=== PATIENT | male | born 1965 | race Caucasian/White ===

== ENCOUNTER 2018-03-06 07:41 | Day surgery (SDC) | payer OTHER ==
[2018-03-06] MEDS ORDERED: Ringers Lactate 1,000 ML IV ONE (08:17)
[2018-03-06] MEDS ORDERED: LIDOCAINE 1% MPF 2 ML AMPULE ONE (09:15)
[2018-03-06] MEDS ORDERED: PROPOFOL 200 MG/20 ML VIAL IV ONE (09:15)
--- NOTE | 2018-03-06 09:37 | ENDO RPT ---
[address], [address] COLONOSCOPY PROCEDURE REPORT EXAM DATE: 03/06/2018 PATIENT NAME: Mingo Person MR #: [id number] BIRTHDATE: 1965 ATTENDING: Tan Yarbrough DR STATUS: outpatient MGMT CONSULTANT: Robbin Jaquez and Karolina June RN INDICATIONS: The patient is a 52 yr old Male here for a colonoscopy due to colon cancer screening PROCEDURE PERFORMED: Colonoscopy with biopsy - cold polypectomy MEDICATIONS: Per Anesthesia. ESTIMATED BLOOD LOSS: None CONSENT: The patient understands the risks and benefits of the procedure and understands that these risks include, but are not limited to: sedation, allergic reaction, infection, perforation and/or bleeding. Alternative means of evaluation and treatment include, among others: physical exam, x-rays, and/or surgical intervention. The patient elects to proceed with this endoscopic procedure. DESCRIPTION OF PROCEDURE: During intra-op preparation period all mechanical medical equipment was checked for proper function. Hand hygiene and appropriate measures for infection prevention was taken. Procedure, possible complications, alternatives including, but not limited to possibility of bleeding, perforation, tear, infection, sepsis, need for surgery, need for blood transfusion, were explained to the patient. After the risks, benefits and alternatives of the procedure were thoroughly explained, Informed consent was verified, confirmed and timeout was successfully executed by the treatment team. The patient was placed in the left lateral position. A digital rectal exam was performed and revealed internal hemorrhoids. After appropriate level of anesthesia, the scope was passed. The EC-[id number] ([id number]) endoscope was introduced through the anus and advanced to the cecum, which was identified by both the appendix and ileocecal valve. The quality of the prep was fair. The instrument was then slowly withdrawn as the colon was fully examined. Scope withdrawal time was 10 minutes. COLON FINDINGS: A small smooth and polypoid shaped semi-pedunculated polyp with a friable surface was found in the descending colon. A polypectomy was performed with a cold snare. The resection was complete, the polyp tissue was completely retrieved and sent to histology. Small internal hemorrhoids were found. Melanosis coli was found in the rectum. A biopsy was performed using cold forceps. Retroflexed views revealed no abnormalities. The scope was then completely withdrawn from the patient and the procedure terminated. ADVERSE EVENTS: There were no complications. IMPRESSIONS: 1. Small semi-pedunculated polyp was found in the descending colon; polypectomy was performed with a cold snare 2. Small internal hemorrhoids RECOMMENDATIONS: 1. avoid NSAIDS for 2 weeks 2. await biopsy results 3. fiber rich diet 4. follow-up: office 2 week(s) 5. yearly hemoccult starting in 4 years 6. hemorrhoidal hygiene RECALL: Return in 5 year(s) for Colonoscopy, pending biopsy results. Pending Biopsy Tan Yarbrough DR eSigned: Tan Yarbrough DR 03/06/2018 9:36 AM cc: CPT CODES: ICD9 CODES: PATIENT NAME: Mingo Person MR#: [id number]
== END 2018-03-06 11:40 | disposition home or self-care (01) ==
LOC: OR 07:41
PROVIDERS: ATTEND Surgery
PROC: 0DBL8ZX Excision of Transverse Colon, Via Natural or Artificial Opening Endoscopic, Diagnostic (ICD-10-PCS; 2018-03-06)
PROC: 0DBP8ZX Excision of Rectum, Via Natural or Artificial Opening Endoscopic, Diagnostic (ICD-10-PCS; principal; 2018-03-06 09:15)
DX: Z12.11 Encounter for screening for malignant neoplasm of colon (principal); D12.3 Benign neoplasm of transverse colon; K63.89 Other specified diseases of intestine; K64.8 Other hemorrhoids; E78.2 Mixed hyperlipidemia; Z83.3 Family history of diabetes mellitus
CPT/HCPCS: 88305; J2001; J2704

== ENCOUNTER 2018-11-15 08:03 | Emergency (ER) | payer BC, OTHER ==
[2018-11-15] MEDS ORDERED: NA CHLORIDE 0.9% 1,000 ML ONE (08:37)
[2018-11-15] MEDS ORDERED: ONDANSETRON 4 MG/2 ML VIAL ONE (08:37)
[2018-11-15] MEDS ORDERED: MORPHINE 4 MG/ML SYR ONE (08:37)
[2018-11-15 08:40] LABS: Absolute Lymphocytes (CBC) 0.8 K/uL (0.7-4.9); Basophils % 0.4 % (0-1.3); Hematocrit 47.7 % (39.6-49.0); Lymphocytes % 6.1 % (15.3-44.8); MPV 9.2 fL (7.6-11.3); Monocytes % 4.6 % (3.3-12.3); RBC Red Blood Cell Count 5.45 M/uL (4.33-5.43)
[2018-11-15 08:55] LABS: Albumin 4.3 g/dL (3.4-5.0); Bilirubin Direct 0.1 mg/dL (0-0.2); Bilirubin Total 0.4 mg/dL (0.2-1.0); Potassium 4.1 mmol/L (3.5-5.1); Protein, Total 8.2 g/dL (6.4-8.2)
[2018-11-15] MEDS ORDERED: FENTANYL CITR 100 MCG/2 ML ONE (09:23)
--- NOTE | 2018-11-15 09:33 | RAD REPORT ---
EXAM DESCRIPTION: CTAbdomen Pelvis W Contrast - 11/15/2018 9:20 am CLINICAL HISTORY: Abdominal pain. ABD PAIN COMPARISON: No comparisons TECHNIQUE: Biphasic CT imaging of the abdomen and pelvis was performed with 100 ml non-ionic IV cont rast. All CT scans are performed using dose optimization technique as appropriate and may include automated exposure control or mA/KV adjustment according to patient size. FINDINGS: The lung bases are clear. The liver, spleen, pancreas, adrenal glands and kidneys are within normal limits. Gallbladder distens ion noted. No bowel obstruction, free air, free fluid or abscess. The appendix is normal. No evidence of signi ficant lymphadenopathy. No suspicious bony findings. IMPRESSION: No acute intra-abdominal or pelvic finding.
[2018-11-15 09:36] LABS: Urine White Blood Cell Casts OK
[2018-11-15 09:37] LABS: Blood Morphology Comment NOT SEEN (NOT SEEN); Platelet Estimate ADEQ
--- NOTE | 2018-11-15 10:25 | EDPHYS ---
Physician Documentation [facility] Name: Mingo Person Age: 52 yrs Sex: Male : 1965 Arrival Date: 11/15/2018 Time: 08:05 Bed 18 Private MD: ED Physician Toni Weller HPI: 11/15 10:15 This 52 yrs old Male presents to ER via Ambulatory with complaints of nh Abdominal Pain. 10:15 The patient presents with abdominal pain in the right upper quadrant. Onset: The nh symptoms/episode began/occurred acutely, this morning. The symptoms do not radiate. Associated signs and symptoms: Pertinent positives: nausea. The symptoms are described as sharp. Modifying factors: The symptoms are alleviated by nothing, the symptoms are aggravated by nothing. Severity of pain: At its worst the pain was moderate this morning. The patient has not experienced similar symptoms in the past. The patient has not recently seen a physician. Historical: - Allergies: 08:14 No Known Allergies; em - PMHx: 08:14 None; em - PSHx: 08:14 skin graft R foot; em - Immunization history:: Adult Immunizations up to date. - Social history:: Smoking status: Patient/guardian denies using tobacco. - Ebola Screening: : Patient negative for fever greater than or equal to 101.5 degrees Fahrenheit, and additional compatible Ebola Virus Disease symptoms Patient denies exposure to infectious person Patient denies travel to an Ebola-affected area in the 21 days before illness onset No symptoms or risks identified at this time. ROS: 10:15 Constitutional: Negative for fever, chills, and weight loss, Eyes: Negative for injury, nh pain, redness, and discharge, ENT: Negative for injury, pain, and discharge, Neck: Negative for injury, pain, and swelling, Cardiovascular: Negative for chest pain, palpitations, and edema, Respiratory: Negative for shortness of breath, cough, wheezing, and pleuritic chest pain, Back: Negative for injury and pain, : Negative for injury, bleeding, discharge, and swelling, MS/Extremity: Negative for injury and deformity, Skin: Negative for injury, rash, and discoloration, Neuro: Negative for headache, weakness, numbness, tingling, and seizure, Psych: Negative for depression, anxiety, suicide ideation, homicidal ideation, and hallucinations, Allergy/Immunology: Negative for hives, rash, and allergies, Endocrine: Negative for neck swelling, polydipsia, polyuria, polyphagia, and marked weight changes, Hematologic/Lymphatic: Negative for swollen nodes, abnormal bleeding, and unusual bruising. 10:15 Abdomen/GI: Positive for abdominal pain, nausea. Exam: 10:15 Constitutional: This is a well developed, well nourished patient who is awake, alert, nh and in no acute distress. Head/Face: Normocephalic, atraumatic. Eyes: Pupils equal round and reactive to light, extra-ocular motions intact. Lids and lashes normal. Conjunctiva and sclera are non-icteric and not injected. Cornea within normal limits. Periorbital areas with no swelling, redness, or edema. ENT: Nares patent. No nasal discharge, no septal abnormalities noted. Tympanic membranes are normal and external auditory canals are clear. Oropharynx with no redness, swelling, or masses, exudates, or evidence of obstruction, uvula midline. Mucous membranes moist. Neck: Trachea midline, no thyromegaly or masses palpated, and no cervical lymphadenopathy. Supple, full range of motion without nuchal rigidity, or vertebral point tenderness. No Meningismus. Chest/axilla: Normal chest wall appearance and motion. Nontender with no deformity. No lesions are appreciated. Cardiovascular: Regular rate and rhythm with a normal S1 and S2. No gallops, murmurs, or rubs. Normal PMI, no JVD. No pulse deficits. Respiratory: Lungs have equal breath sounds bilaterally, clear to auscultation and percussion. No rales, rhonchi or wheezes noted. No increased work of breathing, no retractions or nasal flaring. Back: No spinal tenderness. No costovertebral tenderness. Full range of motion. Skin: Warm, dry with normal turgor. Normal color with no rashes, no lesions, and no evidence of cellulitis. MS/ Extremity: Pulses equal, no cyanosis. Neurovascular intact. Full, normal range of motion. Neuro: Awake and alert, GCS 15, oriented to person, place, time, and situation. Cranial nerves II-XII grossly intact. Motor strength 5/5 in all extremities. Sensory grossly intact. Cerebellar exam normal. Normal gait. Psych: Awake, alert, with orientation to person, place and time. Behavior, mood, and affect are within normal limits. 10:15 Abdomen/GI: Inspection: abdomen appears normal, Bowel sounds: normal, Palpation: moderate abdominal tenderness, in the right upper quadrant. Vital Signs: 08:14 BP 174 / 107; Pulse 65; Resp 20; Temp 98.1; Pulse Ox 97% on R/A; Weight 104.33 kg; em Height 5 ft. 6 in. (167.64 cm); Pain 10/10; 08:43 BP 148 / 73; Pulse 57; Resp 18; Pulse Ox 95% on R/A; Pain 9/10; em 09:38 BP 151 / 71; Pulse 59; Resp 18; Pulse Ox 100% on R/A; Pain 6/10; em 10:35 BP 160 / 81; Pulse 57; Resp 18; Pulse Ox 98% on R/A; Pain 8/10; em 08:14 Body Mass Index 37.12 (104.33 kg, 167.64 cm) em MDM: 08:09 Patient medically screened. wy 10:15 Data reviewed: vital signs, nurses notes, lab test result(s), radiologic studies, I nh have discussed the patient's presentation/case with the attending Emergency Department Physician; and as a result, I will discharge patient. Counseling: I had a detailed discussion with the patient and/or guardian regarding: the historical points, exam findings, and any diagnostic results supporting the discharge/admit diagnosis, lab results, radiology results, the need for outpatient follow up, to return to the emergency department if symptoms worsen or persist or if there are any questions or concerns that arise at home. 11/15 08:20 Order name: Basic Metabolic Panel; Complete Time: 09:20 wy 11/15 08:20 Order name: CBC with Diff; Complete Time: 10:04 wy 11/15 08:20 Order name: Creatinine for Radiology; Complete Time: : wy 11/15 08:20 Order name: Hepatic Function; Complete Time: 09:20 wy 11/15 08:20 Order name: Lipase; Complete Time: 09:20 wy 11/15 09:36 Order name: CBC Smear Scan; Complete Time: 10:04 EDMS 11/15 08:20 Order name: IV Saline Lock; Complete Time: 08:34 wy 11/15 08:20 Order name: CT Abd/Pelvis - IV Contrast Only; Complete Time: 10:04 wy 11/15 08:20 Order name: Labs collected and sent; Complete Time: 08:35 nh Administered Medications: 08:30 Drug: NS 0.9% 1000 ml Route: IV; Rate: 1 bolus; Site: left antecubital; em 10:35 Follow up: IV Status: Completed infusion; IV Intake: 1000ml em 08:34 Drug: morphine 4 mg Route: IVP; Site: left antecubital; sg 09:10 Follow up: Response: No adverse reaction; Pain is unchanged, physician notified em 08:34 Drug: Zofran 4 mg Route: IVP; Site: left antecubital; sg 09:10 Follow up: Response: No adverse reaction em 09:11 Drug: fentaNYL (PF) 50 mcg Route: IVP; Site: left antecubital; hb 09:37 Follow up: Response: No adverse reaction; Pain is decreased em 10:35 Drug: fentaNYL (PF) 50 mcg Route: IVP; Site: left antecubital; em 11:00 Follow up: Response: No adverse reaction; Pain is decreased em Disposition: 11/15/18 10:23 Discharged to Home. Impression: Unspecified abdominal pain. - Condition is Stable. - Discharge Instructions: Abdominal Pain, Adult. - Prescriptions for Bentyl 20 mg Oral Tablet - take 2 tablet by ORAL route every 6 hours As needed; 40 tablet. Zofran 4 mg Oral Tablet - take 1 tablet by ORAL route every 12 hours As needed; 20 tablet. - Medication Reconciliation Form, Thank You Letter, Antibiotic Education, Prescription Opioid Use form. - Follow up: Richard Rivera MD; When: 2 - 3 days; Reason: Recheck today's complaints. - Problem is new. - Symptoms are unchanged. Signatures: Dispatcher [employer] EDMN Jerome Aguiar, RN RN sg Cathy Schaefer, HARP MAKER HARP MAKER wy Eben Mascorro, FRENCH COMBER FRENCH COMBER em Patricia Thornton, RN RN Corrections: (The following items were deleted from the chart) 09:44 08:22 Abdomen Limited+US.RAD.BRZ ordered. EDMN EDMS 11:03 10:23 11/15/2018 10:23 Discharged to Home. Impression: Unspecified abdominal pain. em Condition is Stable. Forms are Medication Reconciliation Form, Thank You Letter, Antibiotic Education, Prescription Opioid Use. Follow up: Richard Rivera; When: 2 - 3 days; Reason: Recheck today's complaints. Problem is new. Symptoms are unchanged. nh
--- NOTE | 2018-11-15 10:25 | ER ---
Nurse's Notes [facility] Name: Mingo Person Age: 52 yrs Sex: Male : 1965 Arrival Date: 11/15/2018 Time: 08:05 Bed 18 Private MD: Diagnosis: Unspecified abdominal pain Presentation: 11/15 08:12 Presenting complaint: Patient states: abdominal pain since last night around 10 pm, em reports nausea, denies V/D or fever, hx of gallstones. Transition of care: patient was not received from another setting of care. Onset of symptoms was November 14, 2018. Risk Assessment: Do you want to hurt yourself or someone else? Patient reports no desire to harm self or others. Initial Sepsis Screen: Does the patient meet any 2 criteria? No. Patient's initial sepsis screen is negative. Does the patient have a suspected source of infection? No. Patient's initial sepsis screen is negative. Care prior to arrival: None. 08:12 Method Of Arrival: Ambulatory em 08:17 Acuity: HEBER 3 hb Historical: - Allergies: 08:14 No Known Allergies; em - PMHx: 08:14 None; em - PSHx: 08:14 skin graft R foot; em - Immunization history:: Adult Immunizations up to date. - Social history:: Smoking status: Patient/guardian denies using tobacco. - Ebola Screening: : Patient negative for fever greater than or equal to 101.5 degrees Fahrenheit, and additional compatible Ebola Virus Disease symptoms Patient denies exposure to infectious person Patient denies travel to an Ebola-affected area in the 21 days before illness onset No symptoms or risks identified at this time. Screenin:15 Abuse screen: Denies threats or abuse. Nutritional screening: No deficits noted. em Tuberculosis screening: No symptoms or risk factors identified. Fall Risk None identified. Assessment: 08:14 General: Appears in no apparent distress. uncomfortable, Behavior is cooperative, em restless, Denies fever. Pain: Complains of pain in right upper quadrant and left upper quadrant Pain radiates to back Pain currently is 10 out of 10 on a pain scale. Pain began 1 day ago. Neuro: Level of Consciousness is awake, alert, obeys commands, Oriented to person, place, time, situation. Cardiovascular: Denies chest pain, shortness of breath, Capillary refill < 3 seconds Patient's skin is warm and dry. Respiratory: Airway is patent Respiratory effort is even, unlabored, Respiratory pattern is regular, symmetrical. GI: Abdomen is round non-distended, Bowel sounds present X 4 quads. Abd is soft X 4 quads Abdomen is tender to palpation in right upper quadrant Reports nausea, Patient currently denies diarrhea, vomiting. Derm: Skin is intact, is healthy with good turgor, Skin is pink, warm \T\ dry. Musculoskeletal: Capillary refill < 3 seconds, Range of motion: intact in all extremities. 08:20 Reassessment: I agree with the assessment made with Eben TUCKER. sg 09:10 Reassessment: reports pain is still 8/10, rocking back and forth in stretcher, provider em notified, new medication orders received. 09:38 Reassessment: Patient appears in no apparent distress at this time. Patient and/or em family updated on plan of care and expected duration. Pain level reassessed. Patient is alert, oriented x 3, equal unlabored respirations, skin warm/dry/pink. Patient states feeling better. Patient states symptoms have improved. 10:30 Reassessment: Patient appears in no apparent distress at this time. Patient and/or em family updated on plan of care and expected duration. Pain level reassessed. request pain medication prior to discharge, provider notified, new medication orders received. Vital Signs: 08:14 BP 174 / 107; Pulse 65; Resp 20; Temp 98.1; Pulse Ox 97% on R/A; Weight 104.33 kg; em Height 5 ft. 6 in. (167.64 cm); Pain 10/10; 08:43 BP 148 / 73; Pulse 57; Resp 18; Pulse Ox 95% on R/A; Pain 9/10; em 09:38 BP 151 / 71; Pulse 59; Resp 18; Pulse Ox 100% on R/A; Pain 6/10; em 10:35 BP 160 / 81; Pulse 57; Resp 18; Pulse Ox 98% on R/A; Pain 8/10; em 08:14 Body Mass Index 37.12 (104.33 kg, 167.64 cm) em ED Course: 08:05 Patient arrived in ED. mr 08:07 Eben Mascorro LVN is Primary Nurse. em 08:09 Cathy Schaefer FNP is [facility]. nh 08:09 Toni Weller MD is Attending Physician. nh 08:14 Arm band placed on. em 08:15 Patient has correct armband on for positive identification. Placed in gown. Bed in low em position. Call light in reach. Adult w/ patient. Pulse ox on. NIBP on. 08:17 Triage completed. hb 08:30 Radiology exam delayed due to lab results not completed at this time. (BUN/Creatinine). mw3 08:30 Initial lab(s) drawn, by me, sent to lab. Inserted saline lock: 20 gauge in left em antecubital area, using aseptic technique. Blood collected. 09:19 CT completed. Patient tolerated procedure well. Patient moved back from CT. mw3 09:20 CT Abd/Pelvis - IV Contrast Only In Process Unspecified. EDMS 10:23 Richard Rivera MD is Referral Physician. nh 11:02 No provider procedures requiring assistance completed. IV discontinued, intact, em bleeding controlled, No redness/swelling at site. Pressure dressing applied. Administered Medications: 08:30 Drug: NS 0.9% 1000 ml Route: IV; Rate: 1 bolus; Site: left antecubital; em 10:35 Follow up: IV Status: Completed infusion; IV Intake: 1000ml em 08:34 Drug: morphine 4 mg Route: IVP; Site: left antecubital; sg 09:10 Follow up: Response: No adverse reaction; Pain is unchanged, physician notified em 08:34 Drug: Zofran 4 mg Route: IVP; Site: left antecubital; sg 09:10 Follow up: Response: No adverse reaction em 09:11 Drug: fentaNYL (PF) 50 mcg Route: IVP; Site: left antecubital; hb 09:37 Follow up: Response: No adverse reaction; Pain is decreased em 10:35 Drug: fentaNYL (PF) 50 mcg Route: IVP; Site: left antecubital; em 11:00 Follow up: Response: No adverse reaction; Pain is decreased em Intake: 10:35 IV: 1000ml; Total: 1000ml. em Outcome: 10:23 Discharge ordered by . nh 11:02 Discharged to home ambulatory, with family. em 11:02 Condition: good 11:02 Discharge instructions given to patient, family, Instructed on discharge instructions, follow up and referral plans. medication usage, Demonstrated understanding of instructions, follow-up care, medications, Prescriptions given X 2. 11:03 Patient left the ED. em Signatures: Dispatcher [employer] Jerome Padilla, ZULEYKA RN sg Cathy Schaefer, MARINE WELDER MARINE WELDER Bindu Moser mr Ludwin, Eben, PATTERN FINISHER PATTERN FINISHER em Patricia Thornton RN RN Denisse Nunez mw3 Corrections: (The following items were deleted from the chart) 11:02 09:38 BP 151 / 71; Pulse 59bpm; Resp 18bpm; Pulse Ox 100% RA; em em
== END 2018-11-15 11:03 | disposition home or self-care (01) ==
LOC: ER 08:03
DX: R10.11 Right upper quadrant pain (principal)
CPT/HCPCS: 36415; 74177; 80048; 80076; 83690; 85025; 96361; 96374; 96375; 99284; J2405; J3010; J7030; Q9967

== ENCOUNTER 2018-11-15 14:01 | Inpatient (IN) | payer BC ==
[2018-11-15] MEDS ORDERED: NA CHLORIDE 0.9% 1,000 ML ONE (14:53)
[2018-11-15] MEDS ORDERED: MORPHINE 4 MG/ML SYR ONE ×2 (14:54→15:35)
[2018-11-15] MEDS ORDERED: ONDANSETRON 4 MG/2 ML VIAL ONE (14:54)
[2018-11-15] MEDS ORDERED: FENTANYL CITR 100 MCG/2 ML ONE (15:48)
--- NOTE | 2018-11-15 16:02 | ER ---
Nurse's Notes [facility] Name: Mingo Person Age: 52 yrs Sex: Male : 1965 Arrival Date: 11/15/2018 Time: 14:02 Bed 24 Private MD: Diagnosis: Other abdominal pain Presentation: 11/15 14:29 Presenting complaint: Patient states: "I was here earlier today for the same complain ca1 of abdominal pain, N/V. I was sent home with prescriptions at around 1130am. I am still in pain now and it is a 10. Transition of care: patient was not received from another setting of care. Onset of symptoms was November 15, 2018. Risk Assessment: Do you want to hurt yourself or someone else? Patient reports no desire to harm self or others. Initial Sepsis Screen: Does the patient meet any 2 criteria? No. Patient's initial sepsis screen is negative. Does the patient have a suspected source of infection? No. Patient's initial sepsis screen is negative. Care prior to arrival: None. 14:29 Method Of Arrival: Ambulatory ca1 14:29 Acuity: HEBER 3 ca1 Triage Assessment: 14:34 General: Appears in no apparent distress. uncomfortable, Behavior is calm, cooperative, ca1 appropriate for age. Pain: Complains of pain in right upper quadrant Pain does not radiate. Pain currently is 10 out of 10 on a pain scale. GI: Abdomen is flat, non-distended, Bowel sounds present X 4 quads. Abd is soft X 4 quads Abdomen is tender to palpation in right upper quadrant Reports nausea, vomiting. Historical: - Allergies: 14:34 No Known Allergies; ca1 - Home Meds: 14:34 atorvastatin 10 mg oral tab 1 tab once daily [Active]; ca1 - PMHx: 14:34 High Cholesterol; ca1 - Immunization history:: Adult Immunizations up to date. - Social history:: Smoking status: Patient/guardian denies using tobacco. - Ebola Screening: : Patient negative for fever greater than or equal to 101.5 degrees Fahrenheit, and additional compatible Ebola Virus Disease symptoms Patient denies exposure to infectious person Patient denies travel to an Ebola-affected area in the 21 days before illness onset No symptoms or risks identified at this time. Screenin:45 Abuse screen: Denies threats or abuse. Denies injuries from another. Nutritional ca1 screening: No deficits noted. Tuberculosis screening: No symptoms or risk factors identified. Fall Risk IV access (20 points). Assessment: 14:45 General: Appears in no apparent distress. uncomfortable, Behavior is calm, cooperative, ca1 appropriate for age. Pain: Complains of pain in abdomen and right upper quadrant Pain does not radiate. Pain currently is 10 out of 10 on a pain scale. Neuro: Level of Consciousness is awake, alert, obeys commands, Oriented to person, place, time, situation. Cardiovascular: Heart tones S1 S2 present Capillary refill < 3 seconds Patient's skin is warm and dry. Respiratory: Airway is patent Respiratory effort is even, unlabored, Respiratory pattern is regular, symmetrical, Breath sounds are clear bilaterally. GI: Abdomen is round non-distended, Bowel sounds present X 4 quads. Abd is soft X 4 quads Abdomen is tender to palpation in right upper quadrant Reports nausea, vomiting. : No deficits noted. No signs and/or symptoms were reported regarding the genitourinary system. EENT: No deficits noted. No signs and/or symptoms were reported regarding the EENT system. Derm: Skin is intact, is healthy with good turgor, Skin is pink, warm \\T\\ dry. Musculoskeletal: Circulation, motion, and sensation intact. Capillary refill < 3 seconds, Range of motion: intact in all extremities. 15:06 Reassessment: Patient appears in no apparent distress at this time. Pt's eyes closed. ca1 Resting with equal and unlabored breathing. Skin pink, warm and dry. Significant other at bedside. 15:20 Reassessment: Pt woke up and c/o abdl pain 10/10. Notified provider. ca1 15:38 Reassessment: Patient appears in no apparent distress at this time. Patient and/or ca1 family updated on plan of care and expected duration. Pain level reassessed. Patient is alert, oriented x 3, equal unlabored respirations, skin warm/dry/pink. Pt still c/o abdl pain. Notified provider. Orders given. 15:59 Reassessment: Dr. Silva at bedside. Assessed pt. ca1 16:26 Reassessment: Patient appears in no apparent distress at this time. Pt's eyes closed, ca1 with equal and unlabored breathing. Skin pink, warm and dry. Kept undisturbed. Vital Signs: 14:34 BP 183 / 98; Pulse 71; Resp 16 S; Temp 98.3(O); Pulse Ox 99% on R/A; Weight 106.59 kg ca1 (R); Height 5 ft. 6 in. (167.64 cm) (R); Pain 10/10; 15:06 BP 172 / 97; Pulse 67; Resp 15 S; Pulse Ox 94% on R/A; ca1 15:35 BP 137 / 80; Pulse 56; Resp 17 S; Temp 99.1(O); Pulse Ox 95% on R/A; Pain 10/10; ca1 16:30 BP 166 / 74; Pulse 82; Resp 16 S; Pulse Ox 96% on R/A; ca1 14:34 Body Mass Index 37.93 (106.59 kg, 167.64 cm) ca1 ED Course: 14:02 Patient arrived in ED. mr 14:23 Barby Perla, RN is Primary Nurse. ca1 14:27 [facility] nh 14:27 Toni Weller MD is Attending Physician. nh 14:32 Triage completed. ca1 14:34 Arm band placed on right wrist. ca1 14:40 Inserted saline lock: 20 gauge in right antecubital area, using aseptic technique. jp3 Patient maintains SpO2 saturation greater than 95% on room air. 14:43 Call light in reach. Side rails up X 1. Verbal reassurance given. Warm blanket given. jp3 Pulse ox on. NIBP on. 14:45 No provider procedures requiring assistance completed. ca1 16:00 EKG done, by ED staff, reviewed by Cathy BELL. jp3 16:02 Scooter Han MD is Hospitalizing Provider. nh 16:18 X-ray completed. Portable x-ray completed in exam room. Patient tolerated procedure jb2 well. 16:19 Chest Single View XRAY In Process Unspecified. EDMS 16:53 Patient admitted, IV remains in place. ca1 Administered Medications: 14:40 Drug: Zofran 4 mg Route: IVP; Site: right antecubital; ca1 15:20 Follow up: Response: No adverse reaction; Pain is decreased ca1 15:20 Follow up: Response: Nausea is decreased ca1 14:43 Drug: morphine 4 mg Route: IVP; Site: right antecubital; ca1 15:20 Follow up: Response: No adverse reaction; Pain is unchanged, physician notified ca1 14:43 Drug: NS 0.9% 1000 ml Route: IV; Rate: 1 bolus; Site: right antecubital; ca1 16:53 Follow up: Response: No adverse reaction; IV Status: Completed infusion ca1 15:21 Drug: morphine 4 mg Route: IVP; Site: right antecubital; ca1 15:37 Follow up: Response: No adverse reaction; Pain is unchanged, physician notified ca1 15:39 Drug: fentaNYL (PF) 50 mcg Route: IVP; Site: right antecubital; ca1 16:00 Follow up: Response: No adverse reaction; Pain is unchanged, physician notified ca1 16:01 Drug: fentaNYL (PF) 50 mcg Route: IVP; Site: right antecubital; ca1 16:29 Follow up: Response: No adverse reaction; Pain is decreased ca1 Outcome: 16:02 Decision to Hospitalize by Provider. al 16:59 Admitted to Med/surg accompanied by tech, family with patient, via stretcher, room 212, ca1 with chart, Report called to BOBBI Oconnell RN 16:59 Condition: stable 16:59 Instructed on the need for admit. 17:12 Patient left the ED. ca1 Signatures: Dispatcher [employer] EDMS Cathy Schaefer, ELECTRONICS DEPARTMENT MANAGER ELECTRONICS DEPARTMENT MANAGER al Bindu Magdaleno, Abrahan wadsworth2 Savage Goodman jp3 Barby Perla RN RN ca1 Corrections: (The following items were deleted from the chart) 16:32 16:26 BP 172 / 73; Pulse 82bpm; Resp 16bpm; Spontaneous; Pulse Ox 96% RA; ca1 ca1
--- NOTE | 2018-11-15 16:03 | EDPHYS ---
Physician Documentation [facility] Name: Mingo Person Age: 52 yrs Sex: Male : 1965 Arrival Date: 11/15/2018 Time: 14:02 Bed 24 Private MD: ED Physician Toni Weller HPI: 11/15 15:59 This 52 yrs old Male presents to ER via Ambulatory with complaints of nh Abdominal Pain. 15:59 The patient presents with abdominal pain in the right upper quadrant. Onset: The nh symptoms/episode began/occurred this morning. The symptoms do not radiate. Associated signs and symptoms: none. The symptoms are described as sharp. Modifying factors: The symptoms are alleviated by nothing, the symptoms are aggravated by nothing. Severity of pain: At its worst the pain was severe just prior to arrival, in the emergency department the pain is unchanged. The patient has not experienced similar symptoms in the past. The patient has been recently seen at the [facility] Department, today, by me, for similar complaints labs were performed, CT scan was performed, was given a prescription for pain medications, was given a prescription for an antiemetic. Historical: - Allergies: 14:34 No Known Allergies; ca1 - Home Meds: 14:34 atorvastatin 10 mg oral tab 1 tab once daily [Active]; ca1 - PMHx: 14:34 High Cholesterol; ca1 - Immunization history:: Adult Immunizations up to date. - Social history:: Smoking status: Patient/guardian denies using tobacco. - Ebola Screening: : Patient negative for fever greater than or equal to 101.5 degrees Fahrenheit, and additional compatible Ebola Virus Disease symptoms Patient denies exposure to infectious person Patient denies travel to an Ebola-affected area in the 21 days before illness onset No symptoms or risks identified at this time. ROS: 15:59 Constitutional: Negative for fever, chills, and weight loss, Eyes: Negative for injury, nh pain, redness, and discharge, ENT: Negative for injury, pain, and discharge, Neck: Negative for injury, pain, and swelling, Cardiovascular: Negative for chest pain, palpitations, and edema, Respiratory: Negative for shortness of breath, cough, wheezing, and pleuritic chest pain, Back: Negative for injury and pain, : Negative for injury, bleeding, discharge, and swelling, MS/Extremity: Negative for injury and deformity, Skin: Negative for injury, rash, and discoloration, Neuro: Negative for headache, weakness, numbness, tingling, and seizure, Psych: Negative for depression, anxiety, suicide ideation, homicidal ideation, and hallucinations, Allergy/Immunology: Negative for hives, rash, and allergies, Endocrine: Negative for neck swelling, polydipsia, polyuria, polyphagia, and marked weight changes, Hematologic/Lymphatic: Negative for swollen nodes, abnormal bleeding, and unusual bruising. 15:59 Abdomen/GI: Positive for abdominal pain, nausea, Negative for vomiting, diarrhea. Exam: 15:59 Constitutional: This is a well developed, well nourished patient who is awake, alert, nh and in no acute distress. Head/Face: Normocephalic, atraumatic. Eyes: Pupils equal round and reactive to light, extra-ocular motions intact. Lids and lashes normal. Conjunctiva and sclera are non-icteric and not injected. Cornea within normal limits. Periorbital areas with no swelling, redness, or edema. ENT: Nares patent. No nasal discharge, no septal abnormalities noted. Tympanic membranes are normal and external auditory canals are clear. Oropharynx with no redness, swelling, or masses, exudates, or evidence of obstruction, uvula midline. Mucous membranes moist. Neck: Trachea midline, no thyromegaly or masses palpated, and no cervical lymphadenopathy. Supple, full range of motion without nuchal rigidity, or vertebral point tenderness. No Meningismus. Chest/axilla: Normal chest wall appearance and motion. Nontender with no deformity. No lesions are appreciated. Cardiovascular: Regular rate and rhythm with a normal S1 and S2. No gallops, murmurs, or rubs. Normal PMI, no JVD. No pulse deficits. Respiratory: Lungs have equal breath sounds bilaterally, clear to auscultation and percussion. No rales, rhonchi or wheezes noted. No increased work of breathing, no retractions or nasal flaring. Abdomen/GI: Soft, non-tender, with normal bowel sounds. No distension or tympany. No guarding or rebound. No evidence of tenderness throughout. Back: No spinal tenderness. No costovertebral tenderness. Full range of motion. Skin: Warm, dry with normal turgor. Normal color with no rashes, no lesions, and no evidence of cellulitis. MS/ Extremity: Pulses equal, no cyanosis. Neurovascular intact. Full, normal range of motion. Neuro: Awake and alert, GCS 15, oriented to person, place, time, and situation. Cranial nerves II-XII grossly intact. Motor strength 5/5 in all extremities. Sensory grossly intact. Cerebellar exam normal. Normal gait. Psych: Awake, alert, with orientation to person, place and time. Behavior, mood, and affect are within normal limits. Vital Signs: 14:34 BP 183 / 98; Pulse 71; Resp 16 S; Temp 98.3(O); Pulse Ox 99% on R/A; Weight 106.59 kg ca1 (R); Height 5 ft. 6 in. (167.64 cm) (R); Pain 10/10; 15:06 BP 172 / 97; Pulse 67; Resp 15 S; Pulse Ox 94% on R/A; ca1 15:35 BP 137 / 80; Pulse 56; Resp 17 S; Temp 99.1(O); Pulse Ox 95% on R/A; Pain 10/10; ca1 16:30 BP 166 / 74; Pulse 82; Resp 16 S; Pulse Ox 96% on R/A; ca1 14:34 Body Mass Index 37.93 (106.59 kg, 167.64 cm) ca1 MDM: 14:27 Patient medically screened. tx 15:59 Data reviewed: vital signs, nurses notes, lab test result(s), radiologic studies, I nh have discussed the patient's presentation/case with the attending Emergency Department Physician; and as a result, I will admit patient. Counseling: I had a detailed discussion with the patient and/or guardian regarding: the historical points, exam findings, and any diagnostic results supporting the discharge/admit diagnosis, lab results, radiology results, the need for further work-up and treatment in the hospital. Physician consultation: Scooter Han MD was called at 16:01, was contacted at 16:01, regarding patient's condition, and will see patient in ED, would like medications started, mefoxin. 11/15 15:06 Order name: Abdomen Exam Complete [facility] 11/15 15:08 Order name: Abdomen Exam Complete [facility] 11/15 15:56 Order name: Chest Single View XRAY tx 11/15 15:50 Order name: CONS Physician Consult [facility] 11/15 15:56 Order name: EKG - Nurse/Tech; Complete Time: 16:00 tx 11/15 16:01 Order name: EKG; Complete Time: 16:02 ca1 Administered Medications: 14:40 Drug: Zofran 4 mg Route: IVP; Site: right antecubital; ca1 15:20 Follow up: Response: No adverse reaction; Pain is decreased ca1 15:20 Follow up: Response: Nausea is decreased ca1 14:43 Drug: morphine 4 mg Route: IVP; Site: right antecubital; ca1 15:20 Follow up: Response: No adverse reaction; Pain is unchanged, physician notified ca1 14:43 Drug: NS 0.9% 1000 ml Route: IV; Rate: 1 bolus; Site: right antecubital; ca1 16:53 Follow up: Response: No adverse reaction; IV Status: Completed infusion ca1 15:21 Drug: morphine 4 mg Route: IVP; Site: right antecubital; ca1 15:37 Follow up: Response: No adverse reaction; Pain is unchanged, physician notified ca1 15:39 Drug: fentaNYL (PF) 50 mcg Route: IVP; Site: right antecubital; ca1 16:00 Follow up: Response: No adverse reaction; Pain is unchanged, physician notified ca1 16:01 Drug: fentaNYL (PF) 50 mcg Route: IVP; Site: right antecubital; ca1 16:29 Follow up: Response: No adverse reaction; Pain is decreased ca1 Disposition: 11/15/18 16:02 Hospitalization ordered by Scooter Han for Observation. Preliminary diagnosis is Other abdominal pain. - Bed requested for Telemetry/MedSurg (observation). - Status is Observation. ca1 - Condition is Stable. - Problem is new. - Symptoms are unchanged. UTI on Admission? No Signatures: Dispatcher [employer] [facility] Suly Smith RN RN dw Cathy Schaefer, FRONT LINE LEADER FRONT LINE LEADER tx Barby Perla RN RN ca1 Corrections: (The following items were deleted from the chart) 16:49 16:02 Hospitalization Ordered by Scooter Han MD for Observation. Preliminary dw diagnosis is Other abdominal pain. Bed requested for Telemetry/MedSurg (observation). Status is Observation. Condition is Stable. Problem is new. Symptoms are unchanged. UTI on Admission? No. nh 17:12 16:49 11/15/2018 16:02 Hospitalization Ordered by Scooter Han MD for Observation. ca1 Preliminary diagnosis is Other abdominal pain. Bed requested for Telemetry/MedSurg (observation). Status is Observation. Condition is Stable. Problem is new. Symptoms are unchanged. UTI on Admission? No. dw
--- NOTE | 2018-11-15 16:48 | RAD REPORT ---
EXAM DESCRIPTION: RAD - Chest Single View - 11/15/2018 4:19 pm CLINICAL HISTORY: abdominal pain Chest pain. COMPARISON: Abdomen Pelvis W Contrast dated 11/15/2018 FINDINGS: Portable technique limits examination quality. Underinflated lungs with vascular crowding noted. The heart is mildly enlarged in size. No displaced fractures. IMPRESSION: Underinflated lungs.
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
[2018-11-15] MEDS ORDERED: ONDANSETRON 4 MG/2 ML VIAL IV PRN (17:17)
[2018-11-15] MEDS ORDERED: HYDROMORPHONE HCL 1 MG/ML INJ IV PRN (17:17)
[2018-11-15] MEDS ORDERED: CEFOXITIN SODIUM 1 GM/VIAL IVPB SCH (17:17)
[2018-11-15] MEDS: NA CHLORIDE 0.9% 1,000 ML IV SCH (17:50)
[2018-11-15] MEDS: CEFOXITIN/SWI 1gm 1 GM/10 ML SYR IV SCH (17:51)
[2018-11-15] MEDS: ACETAMINOPHEN 500 MG TAB PO PRN (22:22)
[2018-11-16] MEDS: NA CHLORIDE 0.9% 1,000 ML IV SCH ×4 (00:22→16:28)
[2018-11-16] MEDS: CEFOXITIN/SWI 1gm 1 GM/10 ML SYR IV SCH ×3 (00:22→16:29)
[2018-11-16 01:23] LABS: Urine Appearance CLEAR; Urine Bilirubin NEGATIVE (NEG); Urine Blood NEGATIVE (NEG); Urine Color YELLOW; Urine Glucose TRACE (NEG); Urine Protein NEGATIVE (NEG); Urine Urobilinogen 0.2 mg/dL (0.2-1.0)
[2018-11-16 01:36] LABS: Urine Microscopic Reflex NO UMIC
[2018-11-16] MEDS: ACETAMINOPHEN 500 MG TAB PO PRN ×2 (04:54→12:24)
[2018-11-16 06:30] LABS: Absolute Lymphocytes (CBC) 1.3 K/uL (0.7-4.9); Basophils % 0.4 % (0-1.3); Hematocrit 45.9 % (39.6-49.0); Lymphocytes % 10.3 % (15.3-44.8); MPV 9.8 fL (7.6-11.3); RBC Red Blood Cell Count 5.22 M/uL (4.33-5.43)
[2018-11-16 06:44] LABS: Albumin 3.8 g/dL (3.4-5.0); Bilirubin Direct 0.3 mg/dL (0-0.2); Bilirubin Total 1.2 mg/dL (0.2-1.0); Potassium 3.7 mmol/L (3.5-5.1); Protein, Total 7.7 g/dL (6.4-8.2)
--- NOTE | 2018-11-16 09:44 | RAD REPORT ---
EXAM DESCRIPTION: US - Abdomen Exam Complete - 11/16/2018 8:40 am CLINICAL HISTORY: Abdominal pain COMPARISON: November 15, 2018 CT abdomen FINDINGS: The liver has a normal echotexture. Multiple gallstones. The gallbladder wall is thickened measuring 7 millimeters. Common bile duct is n ormal caliber. The pancreas is not well seen. No gross abnormality is displayed The right kidney measures 12 centimeters with a normal echotexture. The left kidney measures 11 centimeters with a normal echotexture. The spleen was poorly visualized but appears normal on the CT scan The abdominal aorta and inferior vena cava appear unremarkable IMPRESSION: Cholelithiasis with cholecystitis and gallbladder distention
--- NOTE | 2018-11-16 10:20 | EKG ---
Test Date: 2018-11-15 Test Time: 16:03:59 Heading And Priming Operator: SONIA MEASUREMENT RESULTS: Intervals: Rate: 89 OH: 130 QRSD: 86 QT: 362 QTc: 440 [place]: P: 31 OH: 130 QRS: -14 T: 40 INTERPRETIVE STATEMENTS: Normal sinus rhythm Normal ECG No previous ECG available for comparison Electronically Signed On 11-16-18 10:21:22 CDT by Michael Randolph
--- NOTE | 2018-11-16 13:37 | P.PN ---
Date of Service: 11/16/18 S: Patient feels somewhat better today, finally got his pain under control. O: Vital signs stable, ultrasound demonstrates cholecystitis with cholelithiasis A: Will take for lap choly with IOC when OR is ready P: I will take him to the operating room for laparoscopic possible open cholecystectomy with cholangiogram. The risks of this procedure have been discussed. The possibility of bleeding, infection, injury to bile ducts blood vessels and intestines has been described. The possible need for an open and/ or further surgeries and procedures was discussed. He understands and wants us to proceed.
[2018-11-16] MEDS ORDERED: PROPOFOL 200 MG/20 ML VIAL IV ONE (13:38)
[2018-11-16] MEDS ORDERED: FENTANYL CITR 250 MCG/5 ML ONE (13:38)
[2018-11-16] MEDS ORDERED: ROCURONIUM 50 MG/5 ML VIAL IV ONE (13:38)
[2018-11-16] MEDS ORDERED: ONDANSETRON 4 MG/2 ML VIAL ONE (13:38)
[2018-11-16] MEDS ORDERED: MIDAZOLAM HCL 2 MG/2 ML INJ ONE (13:38)
[2018-11-16] MEDS ORDERED: LIDOCAINE 2% MPF 5 ML VIAL ONE (13:38)
[2018-11-16] MEDS ORDERED: Ringers Lactate 1,000 ML IV ONE ×2 (13:40→14:45)
[2018-11-16] MEDS ORDERED: GLYCOPYRROLATE 0.2 MG/ML SYR ONE (14:16)
[2018-11-16] MEDS ORDERED: EPHEDRINE SULF 50 MG/ML VIAL ONE (14:18)
[2018-11-16] MEDS ORDERED: NEOSTIGMINE 1 MG/ML -10 ML VIAL ONE (14:42)
--- NOTE | 2018-11-16 15:49 | P.OP ---
Preoperative diagnosis: Acute cholecystitis with cholelithiasis Postoperative diagnosis: The same Primary procedure: Laparoscopic cholecystectomy Secondary procedure: Intraoperative cholangiogram Anesthesia: In general Estimated blood loss: Less than 20 cc Specimen: 1 large gallbladder and contents Operative Technique: The patient was brought to the operating room placed supine on the table. After the induction of adequate general endotracheal anesthesia, the area of the abdomen was prepped with a DuraPrep solution, and draped in the usual aseptic manner. A subumbilical incision was made. This brought down through the skin and subcutaneous tissue. The Visiport was used to enter the peritoneal cavity and created pneumoperitoneum to approximately 12 mm of mercury. Under direct vision a 5 mm trocar was placed in the upper midline, and 2 other 5 mm trocars on the right lateral side. The patient was then placed in reverse Trendelenburg , and rolled towards the black oxide operator's side. We could see an intense inflammatory process in the right upper quadrant. The omentum was adherent over the lower edge of the right lobe of the liver, r completely covering the gallbladder. The omentum was gently taken down using blunt sharp dissection. We were now able to visualize a large distended chronically inflamed gallbladder with a acute component. Attempts were made to aspirate the contents. A grasper was placed on the fundus of the gallbladder. Another 1 was placed down by Mary' s pouch. Applying lateral traction we were able to dissect and expose the cystic duct and artery. The artery was dealt with 1st. It was clipped and divided in the usual manner. Attention was now turned towards the cystic duct. It was noted be quite tortuous and dilated. It was gently palpated with him E dissected to milking the stones back up into the gallbladder. A clip was now placed applied across the cystic duct at its junction with the gallbladder. An opening was made into the cystic duct. We attempted then to pass the cholangiocath into the cystic duct. This was then successfully. We were able to gently injected demonstrating the extrahepatic biliary tree. There were no stones seen distally. The catheter was action passed down into the duodenum and went quite easily further. The catheter was then removed from the cystic duct.. Clips were now placed on the distal portion of the cystic duct. The cystic duct was then divided. The gallbladder was now dissected free from the liver bed, placed into an Endo-Catch, and brought out through the umbilical trocar site. Due to the size of the gallbladder was necessary due to incise the midline fascia for approximately 2 which is inferiorly 1 inch inferiorly at the level of our umbilical trocar site. This allowed us if I may extract this huge specimen from the peritoneal cavity. At this point the fascia was approximated using approximately 6 absorbable sutures placed using the Endo Close. Good approximation of the fascia was achieved. We were now able to inspect the peritoneal cavity. The patient was returned to the neutral position on the OR table. The irrigating fluid was aspirated from the gallbladder fossa and over in the right pericolic gutter. The area was irrigated till the ethyl was clear. The trocars were now removed after having the exact with the pneumoperitoneum. [place] were then applied to the skin. At the end of the procedure the patient was in a stable condition when sent to the recovery room. Needle sponge instrument count were correct. 1 specimen was sent for histopathology. Complications: None Transferred to: Recovery Room Condition: Good
[2018-11-16] MEDS ORDERED: ONDANSETRON 4 MG/2 ML VIAL IV PRN (15:54)
--- NOTE | 2018-11-16 16:52 | RAD REPORT ---
EXAM DESCRIPTION: RAD - Cholangiogram Oper-Xray Or - 11/16/2018 4:39 pm CLINICAL HISTORY: LAP KEISHA WITH IOC IN OR 2 COMPARISON: <Comparisons> FINDINGS: Cystic duct injection was performed by operating surgeon. There is no evidence of a retain ed common bile duct stone seen. Total fluoro time: 0.2 minutes
[2018-11-16] MEDS: MORPHINE 4 MG/ML SYR IV PRN ×2 (17:02→20:26)
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
[2018-11-17] MEDS: CEFOXITIN/SWI 1gm 1 GM/10 ML SYR IV SCH ×2 (00:42→08:50)
[2018-11-17] MEDS: NA CHLORIDE 0.9% 1,000 ML IV SCH ×3 (01:17→08:00)
[2018-11-17] MEDS: HYDROCODONE/APAP 7.5/325 MG TAB PO PRN ×2 (02:22→05:56)
--- NOTE | 2018-11-17 10:12 | RAD REPORT ---
EXAM DESCRIPTION: RAD - Chest Pa And Lat (2 Views) - 11/17/2018 10:07 am CLINICAL HISTORY: hypoxia Chest pain. COMPARISON: Chest Single View dated 11/15/2018; Cholangiogram Oper-Xray Or dated 11/16/2018; Abdomen E xam Complete dated 11/16/2018 FINDINGS: The lungs are inflated with moderate bibasilar subsegmental atelectasis, greater on the le ft. The heart is mildly prominent. No displaced fractures. IMPRESSION: Underinflated lungs with subsegmental atelectasis in both lung bases, greater on the lef t.
== END 2018-11-17 16:00 | disposition home or self-care (01) | DRG 419 ==
LOC: ER 14:01 → ERHOLD 16:07 → 2ND 17:00 → OBSVTOIN 11-17 10:45
PROVIDERS: ADMIT Surgery; ATTEND Surgery
PROC: BF101ZZ Fluoroscopy of Bile Ducts using Low Osmolar Contrast (ICD-10-PCS; 2018-11-16)
PROC: 0FT44ZZ Resection of Gallbladder, Percutaneous Endoscopic Approach (ICD-10-PCS; principal; 2018-11-16 13:00)
DX: K80.00 Calculus of gallbladder with acute cholecystitis without obstruction (principal); E78.5 Hyperlipidemia, unspecified
CPT/HCPCS: 36415; 71045; 71046; 74300; 76700; 80048; 80076; 81003; 83690; 85025; 88304; 93005; 96361; 96374; 96375; 97116; 97163; 97530; 99285; G0378; J1170; J2250; J2405; J2704; J2710; J3010; J7030